=== PATIENT | female | born 1975 | race Caucasian/White ===

== ENCOUNTER → 2024-09-19 10:43 | Outpatient (REF) | payer OTHER, SELFPAY | LOC: WDC 10:43 | PROVIDERS: ATTENDING PHYSICIAN Physician Assistant; FAMILY PHYSICIAN Family Medicine | DX: Z12.31 Encounter for screening mammogram for malignant neoplasm of breast (principal) | CPT/HCPCS: 77063; 77067 ==

== ENCOUNTER → 2025-01-29 14:17 | Outpatient (REF) | payer OTHER, SELFPAY | LOC: RAD 14:17 | PROVIDERS: ATTENDING PHYSICIAN Physician Assistant | DX: M25.531 Pain in right wrist (principal); M67.431 Ganglion, right wrist | CPT/HCPCS: 73110 ==

== ENCOUNTER → 2025-03-01 07:29 | Outpatient (REF) | payer OTHER, SELFPAY | LOC: MRI 3T 07:29 | PROVIDERS: ATTENDING PHYSICIAN Orthopaedic Surgery; FAMILY PHYSICIAN Family Medicine | DX: M67.40 Ganglion, unspecified site (principal); M25.531 Pain in right wrist | CPT/HCPCS: 73221 ==

== ENCOUNTER → 2025-03-04 10:40 | Outpatient (REF) | payer OTHER, SELFPAY | LOC: RAD 10:40 | PROVIDERS: ATTENDING PHYSICIAN Internal Medicine Rheumatology; FAMILY PHYSICIAN Family Medicine | DX: L40.59 Other psoriatic arthropathy (principal) | CPT/HCPCS: 72050; 72072; 72110; 72202; 73030; 73564 ==

== ENCOUNTER → 2025-08-29 15:36 | Outpatient (REF) | payer OTHER, SELFPAY | LOC: RAD 15:36 | PROVIDERS: ATTENDING PHYSICIAN Physician Assistant; FAMILY PHYSICIAN Family Medicine | DX: M79.672 Pain in left foot (principal) | CPT/HCPCS: 73630 ==

== ENCOUNTER → 2025-09-20 13:47 | Outpatient (REF) | payer OTHER, SELFPAY | LOC: WDC 13:47 | PROVIDERS: ATTENDING PHYSICIAN Physician Assistant | DX: Z12.31 Encounter for screening mammogram for malignant neoplasm of breast (principal) | CPT/HCPCS: 77063; 77067 ==